=== PATIENT | female | born 1960 | race Hispanic/Latino ===

== ENCOUNTER → 2018-03-21 | Outpatient (CLI) | payer OTHER | LOC: MAMMO 09:30 | PROVIDERS: ATTEND Internal Medicine | DX: Z12.31 Encounter for screening mammogram for malignant neoplasm of breast (principal) | CPT/HCPCS: 77067 ==

== ENCOUNTER → 2019-07-27 | Outpatient (CLI) | payer OTHER ==
--- NOTE | 2019-07-31 09:14 | Diagnostic Imaging Report ---
#[id number] - [id number] #BILATERAL DIGITAL SCREENING MAMMOGRAM WITH CAD: 07/27/2019 CLINICAL: Routine screening. Comparison is made to exams dated: 03/21/2018 mammogram and 12/27/2016 mammogram - [facility]. There are scattered fibroglandular elements in both breasts. Current study was also evaluated with a Computer Aided Detection (CAD) system. There are benign calcifications in both breasts. There also are benign vascular calcifications in the right breast. Additionally there are benign lymph nodes in the left breast. No significant masses, calcifications, or other findings are seen in either breast. There has been no significant interval change. IMPRESSION: BENIGN There is no mammographic evidence of malignancy. A 1 year screening mammogram is recommended. The patient will be notified by letter of the results. BRIA mendoza/madelyn:07/28/2019 16:21:38 Clinical Services Assistant: Saida BELLO(Deanna)([place]), [facility] letter sent: Compared to Prior B9 Mammogram BI-RADS: 2 Benign
== END ==
LOC: MAMMO 12:55
PROVIDERS: ATTEND Internal Medicine
DX: Z12.31 Encounter for screening mammogram for malignant neoplasm of breast (principal)
CPT/HCPCS: 77067

== ENCOUNTER → 2020-09-28 | Outpatient (CLI) | payer OTHER | LOC: MAMMO 10:04 | PROVIDERS: ATTEND Internal Medicine | DX: Z12.31 Encounter for screening mammogram for malignant neoplasm of breast (principal) | CPT/HCPCS: 77067 ==

== ENCOUNTER 2021-01-02 15:53 | Emergency (ER) | payer BC, OTHER ==
[~2021-01-02] VITALS: Ht 157.5 cm; Wt 85.7 kg
[2021-01-02] MEDS ORDERED: PREDNISONE20 MG PO (16:09)
[2021-01-02] MEDS ORDERED: VALTREX1000 MG PO (16:09)
== END 2021-01-02 17:01 | disposition home or self-care (01) ==
LOC: ER 16:23
DX: G51.0 Bell's palsy (principal); I10 Essential (primary) hypertension; E11.9 Type 2 diabetes mellitus without complications; E78.5 Hyperlipidemia, unspecified
CPT/HCPCS: 99282

== ENCOUNTER → 2022-04-13 | Outpatient (CLI) | payer BC ==
[~2022-04-13] MED LIST: PREDNISONE20 MG PO; VALTREX1000 MG PO
== END ==
LOC: MAMMO 12:44
PROVIDERS: ATTEND Internal Medicine
DX: Z12.31 Encounter for screening mammogram for malignant neoplasm of breast (principal); Z13.820 Encounter for screening for osteoporosis; Z78.0 Asymptomatic menopausal state; M85.852 Other specified disorders of bone density and structure, left thigh; M85.88 Other specified disorders of bone density and structure, other site
CPT/HCPCS: 77067; 77080

== ENCOUNTER 2022-09-17 21:54 | Emergency (ER) | payer BC ==
[~2022-09-17] VITALS: Ht 157.5 cm; Wt 85.7 kg
[2022-09-17] MEDS ORDERED: KETOROLAC TROMETHAMINE 60 MG/2 ML VIAL IM STA (22:24)
[2022-09-17] MEDS ORDERED: ONDANSETRON HCL 4 MG ORAL DISINTEGRATING TAB PO STA (22:24)
[2022-09-17 22:57] LABS: COLOR,URINE YELLOW (YELLOW); KETONES,URINE NEGATIVE (NEGATIVE); LEUKOCYTE ESTERASE ,URINE 1+ (NEGATIVE); NITRITE,URINE NEGATIVE (NEGATIVE); PROTEIN,URINE DIPSTICK NEGATIVE (NEGATIVE); URINE UROBILINOGEN 0.2 mg/dL (0.2 - 1)
[2022-09-17 23:04] LABS: BACTERIA,URINE MODERATE /HPF; EPITHELIAL CELLS,URINE FEW /LPF; RENAL EPITHELIAL CELLS,URINE FEW; TRANSITIONAL EPI CELLS,URINE FEW
[2022-09-17 23:05] LABS: CLARITY,URINE SL CLOUDY (CLEAR); WBC,URINE (MAN) 21-50 /HPF (0-5)
[2022-09-18] MEDS ORDERED: AUGMENTIN 500-1 EACH PO ×2 (00:11→00:25)
[2022-09-18] MEDS ORDERED: ULTRAM 50MG50 MG PO ×3 (00:12→00:25)
[2022-09-18] MEDS ORDERED: TRAMADOL HCL 50 MG TAB PO STA (00:16)
[2022-09-18 00:32] VITALS: BP 132/73
== END 2022-09-18 01:12 | disposition home or self-care (01) ==
LOC: ER 22:07
DX: R10.31 Right lower quadrant pain (principal); N39.0 Urinary tract infection, site not specified; R11.2 Nausea with vomiting, unspecified; I10 Essential (primary) hypertension; E11.9 Type 2 diabetes mellitus without complications; E78.5 Hyperlipidemia, unspecified
CPT/HCPCS: 74176; 81001; 99283; J1885; Q0162

== ENCOUNTER 2022-09-19 15:10 | Emergency (ER) | payer BC ==
[~2022-09-19] VITALS: Ht 157.5 cm; Wt 85.7 kg
[~2022-09-19 15:10] MED LIST changes: +AUGMENTIN 500-1 EACH PO; +ULTRAM 50MG50 MG PO
== END 2022-09-19 16:23 | disposition home or self-care (01) ==
LOC: ER 15:16
DX: M54.50 Low back pain, unspecified (principal); N39.0 Urinary tract infection, site not specified; N28.1 Cyst of kidney, acquired; I10 Essential (primary) hypertension; E11.9 Type 2 diabetes mellitus without complications
CPT/HCPCS: 99283

== ENCOUNTER → 2022-10-01 | Outpatient (CLI) | payer BC | LOC: US 09:47 | PROVIDERS: ATTEND Urology | DX: R31.21 Asymptomatic microscopic hematuria (principal); N39.0 Urinary tract infection, site not specified | CPT/HCPCS: 74018; 76770; 76857 ==

== ENCOUNTER → 2023-04-19 | Outpatient (CLI) | payer BC | LOC: MAMMO 13:11 | PROVIDERS: ATTEND Internal Medicine | DX: Z12.31 Encounter for screening mammogram for malignant neoplasm of breast (principal) | CPT/HCPCS: 77067 ==

== ENCOUNTER → 2024-07-01 | Outpatient (REF) | payer MEDICARE | LOC: MAMMO 10:11 | PROVIDERS: ATTEND Internal Medicine | DX: Z12.31 Encounter for screening mammogram for malignant neoplasm of breast (principal) | CPT/HCPCS: 77067 ==

== ENCOUNTER → 2024-12-28 | Outpatient (REF) | payer MEDICARE | LOC: DX 13:42 | PROVIDERS: ATTEND Internal Medicine | DX: M85.88 Other specified disorders of bone density and structure, other site (principal); Z78.0 Asymptomatic menopausal state | CPT/HCPCS: 77080 ==

== ENCOUNTER → 2025-07-01 | Outpatient (REF) | payer MEDICARE | LOC: MAMMO 09:42 | PROVIDERS: ATTEND Student in an Organized Health Care Education/Training Program | DX: Z12.31 Encounter for screening mammogram for malignant neoplasm of breast (principal) | CPT/HCPCS: 77067 ==